=== PATIENT | female | born 1995 | race Caucasian/White ===

== ENCOUNTER 2017-06-29 11:49 | Outpatient (CLI) | payer MEDICAID ==
[2017-06-29 12:12] VITALS: BP 115/56
[2017-06-29] MEDS ORDERED: LACTATED RINGERS 1,000 ML IVBOLUS ONE (13:00)
[2017-06-29 13:15] LABS: MICROSCOPIC INDICATED
[2017-06-29] MEDS ORDERED: PLEASE ENTER ALLERGIES MC SCH (13:30)
[2017-06-29] MEDS ORDERED: TERBUTALINE 1 MG/ML, 1ML ONE (15:46)
[2017-06-29] MEDS ORDERED: PLEASE ENTER HEIGHT AND WEIGHT MC SCH (16:00)
[2017-06-29] MEDS ORDERED: LACTATED RINGERS 1,000 ML IV ONE (16:00)
[2017-06-29] MEDS ORDERED: TERBUTALINE 1 MG/ML, 1ML SQ ONE (16:00)
[2017-06-29] MEDS ORDERED: NITROFURANTOIN (MACROBID) 100 MG CAPSULE ONE (17:05)
[2017-06-29] MEDS ORDERED: NITR100C56 PO (17:07)
[2017-06-29] MEDS ORDERED: NITROFURANTOIN (MACROBID) 100 MG CAPSULE PO ONE (17:30)
== END 2017-06-29 17:20 | disposition home or self-care (01) ==
LOC: LDOP 11:49
PROVIDERS: ATTEND Obstetrics & Gynecology
DX: O26.892 Other specified pregnancy related conditions, second trimester (principal); R10.9 Unspecified abdominal pain; Z3A.27 27 weeks gestation of pregnancy
CPT/HCPCS: 36415; 59025; 81001; 82731; 87086; 96360; 96361; 96372; 99201; J3105; J7120; G0463

== ENCOUNTER 2017-07-10 10:16 | Observation (INO) | payer MEDICAID ==
[~2017-07-10] VITALS: Ht 154.9 cm; Wt 68.6 kg
[~2017-07-10 10:16] MED LIST: NITR100C56 PO
[2017-07-10 10:55] VITALS: BP 119/69
[2017-07-10 11:08] LABS: MICROSCOPIC INDICATED
[2017-07-10] MEDS ORDERED: ONDANSETRON 2MG/ML, 2ML IVPush PRN (11:30)
[2017-07-10] MEDS: D5%-LACTATED RINGERS 1,000 ML IV SCH ×2 (11:40→12:41)
[2017-07-10 11:52] LABS: BASOPHILS # (AUTO) 0.04 x10^3/uL (0-0.3); BASOPHILS % (AUTO) 0 % (0-1); EOSINOPHILS # (AUTO) 0.01 x10^3/uL (0-0.8); EOSINOPHILS % (AUTO) 0 % (1-7); LYMPHOCYTES # (AUTO) 1.27 x10^3/uL (1-6.1); LYMPHOCYTES % (AUTO) 13 % (22-44); MD NO; MEAN CORPUSCULAR HEMOGLOBIN 30.3 pg (27.0-34.8); MEAN CORPUSCULAR HGB CONC 34.3 g/dL (32.4-35.8); MEAN CORPUSCULAR VOLUME 88.4 fL (80-100); MEAN PLATELET VOLUME 7.4 fL (7.4-10.4); MONOCYTES % (AUTO) 3 % (2-9); NEUTROPHILS # (AUTO) 8.25 x10^3/uL (1.8-8.0); NEUTROPHILS % (AUTO) 84 % (42-75); PLATELET COUNT 261 x10^3/uL (130-400); RED BLOOD COUNT 3.88 x10^6/uL (3.82-5.3); RED CELL DISTRIBUTION WIDTH 12.8 % (9.6-15.2)
[2017-07-10] MEDS ORDERED: ONDANSETRON 2MG/ML, 2ML ONE (11:54)
[2017-07-10 12:49] LABS: CULTURE INDICATED? YES; MICROSCOPIC INDICATED
[2017-07-10] MEDS ORDERED: NITROFURANTOIN (MACROBID) 100 MG CAPSULE PO ONE (13:00)
[2017-07-10 14:23] LABS: RAPID INFLUENZA A Negative (Negative); RAPID INFLUENZA B Negative (Negative)
[2017-07-10] MEDS ORDERED: NITROFURANTOIN (MACROBID) 100 MG CAPSULE ONE (14:30)
== END 2017-07-10 14:58 | disposition home or self-care (01) ==
LOC: LDOP 10:16 → LDIP 11:37
PROVIDERS: ADMIT Obstetrics & Gynecology; ATTEND Obstetrics & Gynecology
DX: O21.2 Late vomiting of pregnancy (principal); O23.43 Unspecified infection of urinary tract in pregnancy, third trimester; Z3A.29 29 weeks gestation of pregnancy
CPT/HCPCS: 36415; 59025; 81001; 85025; 87086; 87400; 96361; 96374; G0378; J2405; P9612; 96360; 99211; G0463; J7121

== ENCOUNTER 2017-07-13 19:55 | Inpatient (IN) | payer MEDICAID ==
[~2017-07-13] VITALS: Ht 154.9 cm; Wt 68.6 kg
[2017-07-13 20:20] LABS: MICROSCOPIC INDICATED
[2017-07-13] MEDS ORDERED: ONDANSETRON 2MG/ML, 2ML ONE (20:51)
[2017-07-13] MEDS ORDERED: D5%-LACTATED RINGERS 1,000 ML IV SCH (21:00)
[2017-07-13] MEDS ORDERED: ONDANSETRON 2MG/ML, 2ML IVPush ONE (21:00)
[2017-07-13] MEDS: D5%-LACTATED RINGERS 1,000 ML IV SCH (22:00)
[2017-07-13] MEDS ORDERED: FENTANYL PF 100 MCG/2ML ONE (22:02)
[2017-07-13 22:05] LABS: CULTURE INDICATED? YES; MICROSCOPIC INDICATED
[2017-07-13] MEDS: FENTANYL PF 100 MCG/2ML IVPush PRN (22:07)
[2017-07-13] MEDS: CEFTRIAXONE PMX 1GM/50ML 50 ML IV SCH (23:31)
[2017-07-13 23:38] VITALS: BP 111/60
[2017-07-14] MEDS ORDERED: ONDANSETRON 2MG/ML, 2ML IVPush PRN (01:00)
[2017-07-14] MEDS ORDERED: FENTANYL PF 100 MCG/2ML ONE ×2 (01:11→08:34)
[2017-07-14] MEDS: FENTANYL PF 100 MCG/2ML IVPush PRN ×2 (01:12→08:36)
[2017-07-14] MEDS: D5%-LACTATED RINGERS 1,000 ML IV SCH (02:50)
[2017-07-14 05:46] LABS: BASOPHILS # (AUTO) 0.02 x10^3/uL (0-0.3); BASOPHILS % (AUTO) 0 % (0-1); EOSINOPHILS # (AUTO) 0.07 x10^3/uL (0-0.8); EOSINOPHILS % (AUTO) 1 % (1-7); LYMPHOCYTES # (AUTO) 1.72 x10^3/uL (1-6.1); LYMPHOCYTES % (AUTO) 21 % (22-44); MD NO; MEAN CORPUSCULAR HEMOGLOBIN 31.2 pg (27.0-34.8); MEAN CORPUSCULAR HGB CONC 34.6 g/dL (32.4-35.8); MEAN CORPUSCULAR VOLUME 90.1 fL (80-100); MEAN PLATELET VOLUME 7.5 fL (7.4-10.4); MONOCYTES # (AUTO) 0.85 x10^3/uL (0-1.4); MONOCYTES % (AUTO) 10 % (2-9); NEUTROPHILS # (AUTO) 5.71 x10^3/uL (1.8-8.0); NEUTROPHILS % (AUTO) 68 % (42-75); PLATELET COUNT 197 x10^3/uL (130-400); RED BLOOD COUNT 3.24 x10^6/uL (3.82-5.3); RED CELL DISTRIBUTION WIDTH 13.1 % (9.6-15.2)
[2017-07-14 05:49] LABS: CHLORIDE 112 mmol/L (98-107)
[2017-07-14 06:00] LABS: ALANINE AMINOTRANSFERASE 11 U/L (12-78); ALBUMIN 2.1 g/dL (3.4-5.0); ALKALINE PHOSPHATASE 60 U/L (45-117); ANION GAP 5 mmol/L (5-15); BILIRUBIN,TOTAL 0.5 mg/dL (0.2-1.0); CALCIUM 7.7 mg/dL (8.5-10.1); CREATININE 0.91 mg/dL (0.55-1.02); TOTAL PROTEIN 5.5 g/dL (6.4-8.2)
[2017-07-14 08:30] VITALS: BP 102/56
[2017-07-14] MEDS ORDERED: LACTATED RINGERS 1,000 ML IV SCH (08:30)
[2017-07-14] MEDS: CEFTRIAXONE PMX 1GM/50ML 50 ML IV SCH (11:30)
[2017-07-14] MEDS ORDERED: OXYcodone/APAP 5/325MG TABLET ONE ×3 (12:56→21:21)
[2017-07-14] MEDS: LACTATED RINGERS 1,000 ML IV SCH ×2 (12:59→20:12)
[2017-07-14] MEDS: OXYcodone/APAP 5/325MG TABLET PO PRN ×3 (12:59→21:25)
[2017-07-14] MEDS ORDERED: ONDANSETRON 2MG/ML, 2ML ONE (21:21)
[2017-07-14] MEDS ORDERED: CEFTRIAXONE 1,000 MG in DEXTROSE 5% 50 ML IV SCH (23:30)
[2017-07-15] MEDS ORDERED: OXYcodone/APAP 5/325MG TABLET ONE (04:10)
[2017-07-15] MEDS: OXYcodone/APAP 5/325MG TABLET PO PRN (04:12)
[2017-07-15 09:35] VITALS: BP 96/51
[2017-07-15] MEDS ORDERED: LACTATED RINGERS 1,000 ML IV SCH (12:49)
== END 2017-07-15 11:22 | disposition home or self-care (01) | DRG 781 ==
LOC: LDOP 19:55 → LDIP 20:43 → OBSVTOIN 07-14 12:47
PROVIDERS: ADMIT Obstetrics & Gynecology; ATTEND Obstetrics & Gynecology
PROC: 0T9B70Z Drainage of Bladder with Drainage Device, Via Natural or Artificial Opening (ICD-10-PCS; principal; 2017-07-14)
DX: O23.43 Unspecified infection of urinary tract in pregnancy, third trimester (principal); N13.30 Unspecified hydronephrosis; E86.0 Dehydration; J45.909 Unspecified asthma, uncomplicated; O99.283 Endocrine, nutritional and metabolic diseases complicating pregnancy, third trimester; O99.513 Diseases of the respiratory system complicating pregnancy, third trimester; Z3A.29 29 weeks gestation of pregnancy; Z80.41 Family history of malignant neoplasm of ovary; Z82.3 Family history of stroke; Z88.8 Allergy status to other drugs, medicaments and biological substances
CPT/HCPCS: 36415; 76770; 80053; 81001; 85025; 87086; G0378; J0696; J2405; J3010; J7120; J7121

== ENCOUNTER 2017-09-04 14:28 | Outpatient (CLI) | payer MEDICAID ==
[~2017-09-04] VITALS: Ht 154.9 cm; Wt 69.0 kg
[~2017-09-04 14:28] MED LIST changes: +PREN1TAB60 PO
[2017-09-04 14:46] VITALS: BP 117/70
[2017-09-04] MEDS ORDERED: MEPERIDINE/PF 100 MG/ML ONE (16:29)
[2017-09-04] MEDS ORDERED: MEPERIDINE/PF 25MG/0.5ML IM ONE (16:30)
== END 2017-09-04 16:40 | disposition home or self-care (01) ==
LOC: LDOP 14:28
PROVIDERS: ATTEND Obstetrics & Gynecology
DX: O62.9 Abnormality of forces of labor, unspecified (principal); Z3A.37 37 weeks gestation of pregnancy; O34.219 Maternal care for unspecified type scar from previous cesarean delivery
CPT/HCPCS: 59025; 96372; 99211; J2175; G0463

== ENCOUNTER 2017-09-20 21:26 | Inpatient (IN) | payer MEDICAID ==
[~2017-09-20] VITALS: Ht 154.9 cm; Wt 69.1 kg
[2017-09-21] MEDS ORDERED: OXYTOCIN 30U/ 0.9% NaCL 500ML 500 ML IV SCH (14:45)
[2017-09-21] MEDS ORDERED: LACTATED RINGERS 1,000 ML IV SCH (14:45)
[2017-09-21] MEDS ORDERED: METOCLOPRAMIDE 5 MG/ML, 2ML IV ONE (15:00)
[2017-09-21] MEDS ORDERED: LACTATED RINGERS 1,000 ML IVBOLUS ONE (15:00)
[2017-09-21] MEDS ORDERED: SODIUM CITRATE/CITRIC ACID 30 ML UDC PO ONE (15:00)
[2017-09-21 15:14] LABS: BASOPHILS # (AUTO) 0.02 x10^3/uL (0-0.3); BASOPHILS % (AUTO) 0 % (0-1); EOSINOPHILS # (AUTO) 0.07 x10^3/uL (0-0.8); EOSINOPHILS % (AUTO) 1 % (1-7); LYMPHOCYTES # (AUTO) 2.09 x10^3/uL (1-6.1); LYMPHOCYTES % (AUTO) 26 % (22-44); MD NO; MEAN CORPUSCULAR HEMOGLOBIN 28.2 pg (27.0-34.8); MEAN CORPUSCULAR HGB CONC 33.7 g/dL (32.4-35.8); MEAN CORPUSCULAR VOLUME 83.8 fL (80-100); MEAN PLATELET VOLUME 7.6 fL (7.4-10.4); MONOCYTES # (AUTO) 0.42 x10^3/uL (0-1.4); MONOCYTES % (AUTO) 5 % (2-9); NEUTROPHILS % (AUTO) 68 % (42-75); PLATELET COUNT 225 x10^3/uL (130-400); RED BLOOD COUNT 3.73 x10^6/uL (3.82-5.3); RED CELL DISTRIBUTION WIDTH 14.6 % (9.6-15.2)
[2017-09-21 15:22] VITALS: BP 115/66
[2017-09-21] MEDS ORDERED: EPHEDRINE 50 MG/ML, 1ML IVPush PRN (16:00)
[2017-09-21] MEDS ORDERED: ONDANSETRON ODT 8 MG PO PRN (16:00)
[2017-09-21] MEDS ORDERED: MEPERIDINE/PF 25MG/0.5ML IVPush PRN (16:00)
[2017-09-21] MEDS ORDERED: OXYcodone 5 MG/5 ML ORAL.SOL UDC PO PRN (16:00)
[2017-09-21] MEDS ORDERED: PROMETHAZINE 12.5 MG SUPP PR PRN (16:00)
[2017-09-21] MEDS ORDERED: DEXAMETHASONE 4 MG/ML, 1ML ONE (16:44)
[2017-09-21] MEDS ORDERED: CEFAZOLIN 1,000 MG ONE (16:44)
[2017-09-21] MEDS ORDERED: OXYTOCIN 10 UNITS/ML, 1ML ONE (16:44)
[2017-09-21] MEDS ORDERED: KETOROLAC 30 MG/1 ML ONE (16:44)
[2017-09-21] MEDS ORDERED: SODIUM CITRATE/CITRIC ACID 30 ML UDC ONE (16:44)
[2017-09-21] MEDS ORDERED: EPHEDRINE 50 MG/ML, 1ML ONE (16:44)
[2017-09-21] MEDS: FENTANYL PF 100 MCG/2ML IV PRN ×2 (19:39→19:48)
[2017-09-21] MEDS: MORPHINE SULFATE 4 MG/ML, 1ML IVPush PRN ×2 (19:51→19:56)
[2017-09-21 20:05] VITALS: BP 110/67
[2017-09-21] MEDS ORDERED: MISOPROSTOL 200 MCG TABLET PR PRN (20:30)
[2017-09-21] MEDS ORDERED: ONDANSETRON 2MG/ML, 2ML IV PRN (20:30)
[2017-09-21] MEDS ORDERED: CALCIUM CARBONATE 500 MG TAB.CHEW PO PRN (20:30)
[2017-09-21] MEDS ORDERED: OXYcodone/APAP 5/325MG TABLET PO PRN (20:30)
[2017-09-21] MEDS ORDERED: RHOGAM FROM BLOOD BANK 1 NOTE EA IM/IV ONE (20:30)
[2017-09-21] MEDS: LACTATED RINGERS 1,000 ML IV SCH ×2 (20:30)
[2017-09-21] MEDS: OXYTOCIN 30U/ 0.9% NaCL 500ML 500 ML IV SCH (20:30)
[2017-09-21] MEDS ORDERED: ACETAMINOPHEN 325 MG TABLET PO PRN (20:30)
[2017-09-21] MEDS: KETOROLAC 30 MG/1 ML IV PRN (23:52)
[2017-09-22] VITALS: BP 113/70
[2017-09-22 01:32] LABS: BASOPHILS # (AUTO) 0.05 x10^3/uL (0-0.3); BASOPHILS % (AUTO) 1 % (0-1); EOSINOPHILS % (AUTO) 0 % (1-7); LYMPHOCYTES # (AUTO) 1.13 x10^3/uL (1-6.1); LYMPHOCYTES % (AUTO) 10 % (22-44); MD NO; MEAN CORPUSCULAR HEMOGLOBIN 28.5 pg (27.0-34.8); MEAN CORPUSCULAR HGB CONC 33.5 g/dL (32.4-35.8); MEAN CORPUSCULAR VOLUME 85.1 fL (80-100); MEAN PLATELET VOLUME 7.6 fL (7.4-10.4); MONOCYTES # (AUTO) 0.46 x10^3/uL (0-1.4); MONOCYTES % (AUTO) 4 % (2-9); NEUTROPHILS # (AUTO) 9.25 x10^3/uL (1.8-8.0); NEUTROPHILS % (AUTO) 85 % (42-75); PLATELET COUNT 193 x10^3/uL (130-400); RED BLOOD COUNT 3.12 x10^6/uL (3.82-5.3); RED CELL DISTRIBUTION WIDTH 14.1 % (9.6-15.2)
[2017-09-22 04:45] VITALS: BP 110/70
[2017-09-22] MEDS: LACTATED RINGERS 1,000 ML IV SCH ×2 (05:18→06:12)
[2017-09-22] MEDS: KETOROLAC 30 MG/1 ML IV PRN ×2 (05:36→11:03)
[2017-09-22] MEDS: OXYcodone/APAP 5/325MG TABLET PO PRN ×3 (06:08→19:12)
[2017-09-22] MEDS: OXYTOCIN 30U/ 0.9% NaCL 500ML 500 ML IV SCH (06:12)
[2017-09-22] MEDS ORDERED: LACTATED RINGERS 1,000 ML IV SCH (08:00)
[2017-09-22] MEDS: PRENATAL VIT/IRON/FA 1 EACH TABLET PO SCH (08:07)
[2017-09-22] MEDS: DOCUSATE 100 MG CAPSULE PO PRN ×2 (08:07→19:12)
[2017-09-22 08:30] VITALS: BP 114/62
[2017-09-22 12:00] VITALS: BP 110/60
[2017-09-22 16:00] VITALS: BP 112/72
[2017-09-22] MEDS: IBUPROFEN 600 MG TABLET PO PRN (19:12)
[2017-09-22 19:30] VITALS: BP 115/72
[2017-09-23] MEDS: IBUPROFEN 600 MG TABLET PO PRN ×2 (04:30→12:10)
[2017-09-23] MEDS: OXYcodone/APAP 5/325MG TABLET PO PRN ×2 (04:30→12:10)
[2017-09-23] MEDS ORDERED: OXYC-302 PO (07:26)
[2017-09-23] MEDS ORDERED: IBUP200T49 PO (07:27)
[2017-09-23 07:45] VITALS: BP 119/78
[2017-09-23] MEDS: PRENATAL VIT/IRON/FA 1 EACH TABLET PO SCH (08:59)
[2017-09-23] MEDS ORDERED: IBUP-1222 PO (09:39)
== END 2017-09-23 13:45 | disposition home or self-care (01) | DRG 766 ==
LOC: LDIP 09-21 14:39 → 2NW 09-21 19:58
PROVIDERS: ADMIT Obstetrics & Gynecology; ATTEND Obstetrics & Gynecology
PROC: 10D00Z1 Extraction of Products of Conception, Low, Open Approach (ICD-10-PCS; principal; 2017-09-21)
DX: O34.211 Maternal care for low transverse scar from previous cesarean delivery (principal); O14.94 Unspecified pre-eclampsia, complicating childbirth; Z37.0 Single live birth; O69.1XX0 Labor and delivery complicated by cord around neck, with compression, not applicable or unspecified; Z3A.39 39 weeks gestation of pregnancy
CPT/HCPCS: 36415; 82803; 85025; 85461; 86850; 86900; J0171; J0690; J1100; J1885; J2790; J3010; J2590; J2765; J7120